=== PATIENT | male | born 1945 | race Caucasian/White ===

== ENCOUNTER 2019-05-08 21:21 | Inpatient (IN) | payer MEDICARE, OTHER ==
[~2019-05-08] VITALS: Ht 170.2 cm; Wt 70.5 kg
[~2019-05-08 21:21] MED LIST: NO HOME MEDS
[2019-05-08 22:00] LABS: BASOPHILS % (AUTO) 0.4 % (0-1); EOSINOPHILS # (AUTO) 0.1 X10'3 (0-0.9); EOSINOPHILS % (AUTO) 0.6 % (0-6); HEMATOCRIT 37.7 % (42.0-52.0); LYMPHOCYTES # (AUTO) 0.8 X10'3 (1.1-4.8); LYMPHOCYTES % (AUTO) 7.9 % (21-51); MEAN CORPUSCULAR HEMOGLOBIN 31.7 PG (27.0-31.0); MEAN CORPUSCULAR HGB CONC 34.5 g/dL (33.0-36.5); MEAN CORPUSCULAR VOLUME 91.8 FL (78-98); MEAN PLATELET VOLUME 7.9 FL (7.4-10.4); MONOCYTES % (AUTO) 9.6 % (2-12); NEUTROPHILS # (AUTO) 8.5 X10'3 (1.8-7.7); NEUTROPHILS % (AUTO) 81.5 % (42-75); PLATELET COUNT 235 X10'3 (140-440); RED BLOOD COUNT 4.11 X10'6 (4.70-6.10); RED CELL DISTRIBUTION WIDTH 12.9 % (11.5-14.5); WHITE BLOOD COUNT 10.5 X10'3 (4.5-11.0)
[2019-05-08 22:10] LABS: PARTIAL THROMBOPLASTIN TIME 32 SECONDS (22-32)
[2019-05-08 22:13] LABS: ALANINE AMINOTRANSFERASE 20 U/L (12-78); ALBUMIN 2.8 G/DL (3.4-5.0); ALBUMIN/GLOBULIN RATIO 0.7 (1.1-1.5); ANION GAP 7 (8-16); ASPARTATE AMINO TRANSFERASE 17 U/L (10-37); BILIRUBIN,TOTAL 0.4 MG/DL (0.1-1.0); BLOOD UREA NITROGEN 11 MG/DL (7-18); BUN/CREATININE RATIO 12.4 (5.4-32.0); CHLORIDE 106 MMOL/L (99-107); CREATININE 0.89 MG/DL (0.60-1.10); GLUCOSE 103 MG/DL (70-104); POTASSIUM 3.9 MMOL/L (3.5-5.1); SODIUM 139 MMOL/L (135-145); TOTAL CARBON DIOXIDE 25.9 MMOL/L (24-32); TOTAL PROTEIN 6.7 G/DL (6.4-8.2); eGFR 83 ML/MIN
[2019-05-08 22:33] LABS: ALKALINE PHOSPHATASE 66 IU/L (46-116)
[2019-05-08] MEDS ORDERED: azithromycin/NS 500mg/250ml 250 ML IV ONE (22:45)
[2019-05-08] MEDS ORDERED: diltiazem 5mg/ml 5ml inj. IV ONE (22:50)
[2019-05-08] MEDS ORDERED: diltiazem 30mg tablet PO ONE (22:50)
[2019-05-08] MEDS ORDERED: cefepime 1GM/NS ADD-VANTAGE 100 ML IV ONE (22:55)
[2019-05-08 22:57] LABS: D-DIMER 0.37 MG/L FEU (0-0.50)
[2019-05-08] MEDS ORDERED: magnesium 4gm in 100ml NS 100 ML IV PRN (23:05)
[2019-05-08] MEDS ORDERED: metoprolol tartrate 1mg/ml inj IV PRN (23:05)
[2019-05-08] MEDS ORDERED: acetaminophen 325mg tablet PO PRN (23:05)
[2019-05-08] MEDS ORDERED: mag hydrox/Alum hydrox/simeth 30ml oral suspension PO PRN (23:05)
[2019-05-08] MEDS ORDERED: potassium Cl 20 mEq SR tablet PO PRN ×2 (23:05)
[2019-05-08] MEDS ORDERED: ondansetron/PF 4mg/2ml inj IV PRN (23:05)
[2019-05-08] MEDS ORDERED: magnesium hydroxide 30ml (MOM) UD suspension PO PRN (23:05)
[2019-05-08] MEDS ORDERED: magnesium Cl slow-release 64mg tablet PO PRN (23:05)
[2019-05-08] MEDS ORDERED: magnesium 2GM in 50ml NS 50 ML IV PRN (23:05)
[2019-05-08] MEDS ORDERED: potassium CL 10mEq/100ml bag 100 ML IV PRN ×2 (23:05)
--- NOTE | 2019-05-08 23:08 | NUR ---
PT IS INCONTINENT OF URINE, PAJAMA BOTTOMS WET, CLEANED PT, AT BEDSIDE,
--- NOTE | 2019-05-09 00:02 | NUR ---
at bedside, she said he needs pureed food and he constantly drools and needs a washcloth, pt communicates by using one finger for yes and 2 fingers for no, he also can say yes or no, difficulty speaking
--- NOTE | 2019-05-09 01:00 | NUR ---
BP 86/46, at bedside and said his mentation has not changed, paged hospitalist, Dr Andrews aware also, gave verbal order for 1liter NS bolus, HR 90s to 110, skin p/w/d,
[2019-05-09] MEDS ORDERED: normal saline 1000ml 1,000 ML IV ONE (01:15)
--- NOTE | 2019-05-09 01:25 | NUR ---
report given to Tahmina RN, will hold transferring to floor due to low BP, pt is receiving 1 liter NS fluid bolus now, at bedside and is aware of plan
[2019-05-09] MEDS ORDERED: dexamethasone sod phosphate 10mg/ml inj IV STA (01:45)
--- NOTE | 2019-05-09 01:47 | NUR ---
800 ml of 1000 ns bolus in pt, pt bp 77/56. Susi cupola tender notified and at bedside now. Awaiting orders and will continue to monitor
--- NOTE | 2019-05-09 02:56 | NUR ---
Patient in room ED 2. I have received report from Tahmina JUÁREZ and had the opportunity to ask questions and assume patient care.
[2019-05-09 03:45] VITALS: BP 88/56
[2019-05-09 05:19] LABS: BASOPHILS % (AUTO) 0.5 % (0-1); EOSINOPHILS # (AUTO) 0.1 X10'3 (0-0.9); EOSINOPHILS % (AUTO) 0.9 % (0-6); HEMATOCRIT 36.7 % (42.0-52.0); HEMOGLOBIN 12.5 g/dl (14.0-17.9); LYMPHOCYTES # (AUTO) 0.6 X10'3 (1.1-4.8); LYMPHOCYTES % (AUTO) 7.7 % (21-51); MEAN CORPUSCULAR HEMOGLOBIN 31.5 PG (27.0-31.0); MEAN CORPUSCULAR HGB CONC 34.1 g/dL (33.0-36.5); MEAN CORPUSCULAR VOLUME 92.4 FL (78-98); MEAN PLATELET VOLUME 8.3 FL (7.4-10.4); MONOCYTES # (AUTO) 0.3 X10'3 (0-0.9); MONOCYTES % (AUTO) 4.3 % (2-12); NEUTROPHILS # (AUTO) 6.5 X10'3 (1.8-7.7); NEUTROPHILS % (AUTO) 86.6 % (42-75); PLATELET COUNT 250 X10'3 (140-440); RED BLOOD COUNT 3.97 X10'6 (4.70-6.10); WHITE BLOOD COUNT 7.5 X10'3 (4.5-11.0)
[2019-05-09 05:29] LABS: ALBUMIN 2.8 G/DL (3.4-5.0); ANION GAP 8 (8-16); BLOOD UREA NITROGEN 7 MG/DL (7-18); BUN/CREATININE RATIO 8.1 (5.4-32.0); CALCIUM 7.9 MG/DL (8.5-10.1); CHLORIDE 110 MMOL/L (99-107); CREATININE 0.86 MG/DL (0.60-1.10); GLUCOSE 114 MG/DL (70-104); POTASSIUM 3.8 MMOL/L (3.5-5.1); SODIUM 144 MMOL/L (135-145); TOTAL CARBON DIOXIDE 26.3 MMOL/L (24-32); eGFR 87 ML/MIN
[2019-05-09 06:00] VITALS: BP 107/63
--- NOTE | 2019-05-09 06:00 | NUR ---
Patient in room PCU 3026. I have received report from [facility] and had the opportunity to ask questions and assume patient care.
--- NOTE | 2019-05-09 07:07 | NUR ---
Problems reprioritized. Patient report given, questions answered & plan of care reviewed with Florencia JUÁREZ.
[2019-05-09] MEDS ORDERED: cefepime 2gm inj IV SCH (08:00)
[2019-05-09] MEDS: K and/or MAG REPLACEMENT MC SCH (08:00)
[2019-05-09] MEDS: cefepime 1GM in D5W 50mL 50 ML IV SCH ×2 (08:55→21:17)
[2019-05-09] MEDS: metoprolol tartrate 25mg tablet PO SCH ×2 (08:56→21:18)
[2019-05-09] MEDS: enoxaparin 40mg/0.4ml syringe SQ SCH (08:58)
[2019-05-09 10:05] LABS: CLARITY,URINE CLEAR (Clear); COLOR,URINE YELLOW (Yellow); GLUCOSE, URINE 250 mg/dl (Neg); KETONES,URINE NEGATIVE (Neg); LEUKOCYTE ESTERASE ,URINE NEGATIVE (Neg); NITRITES, URINE NEGATIVE (Neg); OCCULT BLOOD,URINE TRACE-LYSED (Neg); PH,URINE 6.5 (4.8-8.0); PROTEIN,URINE NEGATIVE (Neg); UROBILINOGEN,URINE 0.2 E.U/dL (0.2-1.0)
[2019-05-09 10:06] LABS: UA COLLECTION TYPE NON-SPECIFIED
[2019-05-09] MEDS: metroNIDAZOLE-Flagyl 500mg/NS 100 ML IV SCH ×3 (10:06→23:48)
[2019-05-09 10:17] LABS: SQUAMOUS EPITHELIAL CELL,UR FEW /LPF (FEW)
[2019-05-09 10:18] LABS: WBC,URINE 0-4 /HPF (0-4)
[2019-05-09 10:19] LABS: BACTERIA,URINE FEW /HPF (Neg); RBC,URINE 0-2 /HPF (0-2)
[2019-05-09 11:00] VITALS: BP 97/70
[2019-05-09 16:52] VITALS: BP 131/55
[2019-05-09 18:00] VITALS: BP 110/70
[2019-05-09] MEDS ORDERED: bisacodyl 10mg suppository rectal RC PRN (18:20)
--- NOTE | 2019-05-09 18:39 | NUR ---
Problems reprioritized. Patient report given, questions answered & plan of care reviewed with Luz Marina
--- NOTE | 2019-05-09 18:51 | NUR ---
Patient in room PCU 3026. I have received report from Maribel JUÁREZ and had the opportunity to ask questions and assume patient care.
[2019-05-09] MEDS: lactobacillus rhamnosus 10,000 MMU CELLS/CAPSULE PO SCH (21:17)
[2019-05-09 22:00] VITALS: BP 101/63
[2019-05-10] VITALS (10 sets, daily range): BP systolic 80–132; BP diastolic 40–73
[2019-05-10 05:28] LABS: BASOPHILS % (AUTO) 0.1 % (0-1); EOSINOPHILS % (AUTO) 0 % (0-6); HEMATOCRIT 35.8 % (42.0-52.0); HEMOGLOBIN 12.5 g/dl (14.0-17.9); LYMPHOCYTES % (AUTO) 11.8 % (21-51); MEAN CORPUSCULAR HEMOGLOBIN 31.6 PG (27.0-31.0); MEAN CORPUSCULAR HGB CONC 34.8 g/dL (33.0-36.5); MEAN PLATELET VOLUME 8.3 FL (7.4-10.4); MONOCYTES # (AUTO) 0.6 X10'3 (0-0.9); NEUTROPHILS # (AUTO) 6.5 X10'3 (1.8-7.7); NEUTROPHILS % (AUTO) 80.1 % (42-75); PLATELET COUNT 281 X10'3 (140-440); RED BLOOD COUNT 3.94 X10'6 (4.70-6.10); RED CELL DISTRIBUTION WIDTH 12.8 % (11.5-14.5); WHITE BLOOD COUNT 8.2 X10'3 (4.5-11.0)
--- NOTE | 2019-05-10 06:00 | NUR ---
Patient in room PCU 3026. I have received report from Luz Marina JUÁREZ and had the opportunity to ask questions and assume patient care.
[2019-05-10 06:12] LABS: ALBUMIN 2.9 G/DL (3.4-5.0); ANION GAP 10 (8-16); BLOOD UREA NITROGEN 11 MG/DL (7-18); BUN/CREATININE RATIO 15.1 (5.4-32.0); CALCIUM 8.6 MG/DL (8.5-10.1); CHLORIDE 109 MMOL/L (99-107); CREATININE 0.73 MG/DL (0.60-1.10); GLUCOSE 117 MG/DL (70-104); MAGNESIUM 2.1 MG/DL (1.5-2.4); SODIUM 144 MMOL/L (135-145); TOTAL CARBON DIOXIDE 24.8 MMOL/L (24-32); eGFR > 90 ML/MIN
--- NOTE | 2019-05-10 06:43 | NUR ---
Problems reprioritized. Patient report given, questions answered & plan of care reviewed with Aileen JUÁREZ.
[2019-05-10] MEDS: K and/or MAG REPLACEMENT MC SCH (08:00)
[2019-05-10] MEDS: cefepime 1GM in D5W 50mL 50 ML IV SCH (08:03)
[2019-05-10] MEDS: lactobacillus rhamnosus 10,000 MMU CELLS/CAPSULE PO SCH ×2 (08:12→20:54)
[2019-05-10] MEDS: metoprolol tartrate 25mg tablet PO SCH ×2 (08:14→20:55)
[2019-05-10] MEDS: enoxaparin 40mg/0.4ml syringe SQ SCH (08:15)
[2019-05-10] MEDS ORDERED: levoFLOXACIN-Levaquin 500mg/D5 100 ML IV SCH (09:00)
--- NOTE | 2019-05-10 19:22 | NUR ---
Problems reprioritized. Patient report given, questions answered & plan of care reviewed with MARQUITA Williamson. Addendum: 05/10/19 at 1924 by Karoline Fitzgerald RN Report given to MARQUITA Raza not MARQUITA Williamson
--- NOTE | 2019-05-10 19:45 | NUR ---
Patient in room PCU 3026. I have received report from Rosa Elena JUÁREZ and had the opportunity to ask questions and assume patient care.
[2019-05-10] MEDS: levoFLOXACIN-Levaquin 500mg/D5 100 ML IV SCH (20:56)
[2019-05-11] MEDS: acetaminophen 325mg tablet PO PRN (00:42)
[2019-05-11 02:00] VITALS: BP 112/61
[2019-05-11 05:24] LABS: BASOPHILS % (AUTO) 0.5 % (0-1); EOSINOPHILS # (AUTO) 0.1 X10'3 (0-0.9); EOSINOPHILS % (AUTO) 1.1 % (0-6); HEMOGLOBIN 12.9 g/dl (14.0-17.9); LYMPHOCYTES # (AUTO) 1.8 X10'3 (1.1-4.8); LYMPHOCYTES % (AUTO) 19.1 % (21-51); MEAN CORPUSCULAR HEMOGLOBIN 31.7 PG (27.0-31.0); MEAN CORPUSCULAR VOLUME 90.7 FL (78-98); MEAN PLATELET VOLUME 8.2 FL (7.4-10.4); MONOCYTES % (AUTO) 10.6 % (2-12); NEUTROPHILS # (AUTO) 6.3 X10'3 (1.8-7.7); NEUTROPHILS % (AUTO) 68.7 % (42-75); PLATELET COUNT 297 X10'3 (140-440); RED BLOOD COUNT 4.08 X10'6 (4.70-6.10); RED CELL DISTRIBUTION WIDTH 12.8 % (11.5-14.5); WHITE BLOOD COUNT 9.2 X10'3 (4.5-11.0)
[2019-05-11 05:31] LABS: ALBUMIN 2.8 G/DL (3.4-5.0); ANION GAP 8 (8-16); BLOOD UREA NITROGEN 11 MG/DL (7-18); BUN/CREATININE RATIO 15.5 (5.4-32.0); CALCIUM 8.4 MG/DL (8.5-10.1); CHLORIDE 109 MMOL/L (99-107); CREATININE 0.71 MG/DL (0.60-1.10); GLUCOSE 87 MG/DL (70-104); MAGNESIUM 1.9 MG/DL (1.5-2.4); POTASSIUM 3.6 MMOL/L (3.5-5.1); SODIUM 144 MMOL/L (135-145); TOTAL CARBON DIOXIDE 27.1 MMOL/L (24-32); eGFR > 90 ML/MIN
[2019-05-11 06:30] VITALS: BP 115/68
--- NOTE | 2019-05-11 07:06 | NUR ---
Patient in room PCU 3027A. I have received report from Catherine JUÁREZ and had the opportunity to ask questions and assume patient care.
--- NOTE | 2019-05-11 07:19 | NUR ---
Problems reprioritized. Patient report given, questions answered & plan of care reviewed with Indira JUÁREZ.
[2019-05-11] MEDS: metoprolol tartrate 25mg tablet PO SCH ×2 (08:00→16:33)
[2019-05-11] MEDS: K and/or MAG REPLACEMENT MC SCH (08:00)
[2019-05-11] MEDS: enoxaparin 40mg/0.4ml syringe SQ SCH (08:42)
[2019-05-11] MEDS: lactobacillus rhamnosus 10,000 MMU CELLS/CAPSULE PO SCH ×2 (08:42→21:06)
--- NOTE | 2019-05-11 10:40 | NUR ---
0142 reassessment for Tylenol not done. "not done" clicked to clear from EMAR
[2019-05-11 11:00] VITALS: BP 93/56
--- NOTE | 2019-05-11 12:36 | NUR ---
Patient had 4 beat run of V-tach. Reported to Dr Prado PAGER ID: [phone] MESSAGE: Indira story [phone]. RE Juan Miller [id number]. 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 Heart rate currently 107.
--- NOTE | 2019-05-11 13:05 | NUR ---
Problems reprioritized. Patient report given, questions answered & plan of care reviewed with Senait JUÁREZ.
--- NOTE | 2019-05-11 13:26 | NUR ---
RECEIVED REPORT FROM KIRSTEN Giraldo RN. [facility]
[2019-05-11 15:00] VITALS: BP 140/81
[2019-05-11 18:00] VITALS: BP 118/51
--- NOTE | 2019-05-11 18:10 | NUR ---
Patient in room PCU 3026. I have received report from Senait JUÁREZ and had the opportunity to ask questions and assume patient care.
--- NOTE | 2019-05-11 18:23 | NUR ---
PT IS NON COMPLIANT WITH HOLDING SALT.
[2019-05-11] MEDS: levoFLOXACIN-Levaquin 500mg/D5 100 ML IV SCH (21:07)
[2019-05-11 23:00] VITALS: BP 91/44
[2019-05-12 02:30] VITALS: BP 105/62
[2019-05-12 05:37] LABS: BASOPHILS % (AUTO) 0.6 % (0-1); EOSINOPHILS # (AUTO) 0.2 X10'3 (0-0.9); EOSINOPHILS % (AUTO) 2.9 % (0-6); HEMATOCRIT 41.4 % (42.0-52.0); HEMOGLOBIN 14.4 g/dl (14.0-17.9); LYMPHOCYTES # (AUTO) 1.7 X10'3 (1.1-4.8); LYMPHOCYTES % (AUTO) 24.1 % (21-51); MEAN CORPUSCULAR HEMOGLOBIN 31.8 PG (27.0-31.0); MEAN CORPUSCULAR HGB CONC 34.7 g/dL (33.0-36.5); MEAN CORPUSCULAR VOLUME 91.7 FL (78-98); MEAN PLATELET VOLUME 7.9 FL (7.4-10.4); MONOCYTES # (AUTO) 0.9 X10'3 (0-0.9); MONOCYTES % (AUTO) 13.2 % (2-12); NEUTROPHILS # (AUTO) 4.3 X10'3 (1.8-7.7); NEUTROPHILS % (AUTO) 59.2 % (42-75); PLATELET COUNT 344 X10'3 (140-440); RED BLOOD COUNT 4.52 X10'6 (4.70-6.10); RED CELL DISTRIBUTION WIDTH 13.1 % (11.5-14.5); WHITE BLOOD COUNT 7.2 X10'3 (4.5-11.0)
[2019-05-12 05:40] LABS: ANION GAP 8 (8-16); BLOOD UREA NITROGEN 9 MG/DL (7-18); BUN/CREATININE RATIO 10.5 (5.4-32.0); CALCIUM 8.9 MG/DL (8.5-10.1); CHLORIDE 105 MMOL/L (99-107); CREATININE 0.86 MG/DL (0.60-1.10); GLUCOSE 95 MG/DL (70-104); MAGNESIUM 1.9 MG/DL (1.5-2.4); POTASSIUM 3.7 MMOL/L (3.5-5.1); SODIUM 142 MMOL/L (135-145); TOTAL CARBON DIOXIDE 28.6 MMOL/L (24-32); eGFR 87 ML/MIN
[2019-05-12 06:30] VITALS: BP 109/63
--- NOTE | 2019-05-12 06:30 | NUR ---
Problems reprioritized. Patient report given, questions answered & plan of care reviewed with Indira lopez and Halie RN.
--- NOTE | 2019-05-12 06:35 | NUR ---
Patient in room PCU 3020M. I have received report from Jolene JUÁREZ and had the opportunity to ask questions and assume patient care.
[2019-05-12] MEDS: K and/or MAG REPLACEMENT MC SCH (07:03)
[2019-05-12] MEDS: metoprolol tartrate 25mg tablet PO SCH ×3 (07:21→20:33)
--- NOTE | 2019-05-12 07:39 | NUR ---
notification to Dr Jones that patient is back in A-fib PAGER ID: [phone] MESSAGE: Indira story [phone]. RE Juan Miller 3026A. PANCHOI that patient is in A-fib (goes back and forth between A-fib and SR). HR currently 120. Thank you
--- NOTE | 2019-05-12 08:17 | NUR ---
Patient converted back to sinus, paged Dr Jones to be aware PAGER ID: [phone] MESSAGE: Indira story [phone]. RE Juan Miller 3026A. Pt converted back to Sinus, HR 117.
[2019-05-12] MEDS: lactobacillus rhamnosus 10,000 MMU CELLS/CAPSULE PO SCH ×2 (08:20→20:33)
[2019-05-12] MEDS: enoxaparin 40mg/0.4ml syringe SQ SCH (08:21)
[2019-05-12 11:00] VITALS: BP 103/41
[2019-05-12] MEDS ORDERED: LACT1CAP26 PO (13:41)
[2019-05-12] MEDS ORDERED: LEVO500T89 PO (13:41)
[2019-05-12] MEDS ORDERED: METO25TA6 PO (13:41)
[2019-05-12] MEDS ORDERED: METO-395 PO (13:43)
--- NOTE | 2019-05-12 14:04 | NUR ---
Per MD Dr. Jones, patient stable for discharge. Per discharge order, pt to go back to [facility]. Contacted case management as did not want patient to go back to [facility]. Spoke with Dilia PALU, will speak with Dr. Jones about discharge plan and call back. Awaiting call from case management at this time.
[2019-05-12 15:00] VITALS: BP 99/69
--- NOTE | 2019-05-12 15:59 | NUR ---
Per case repairer Felicity, patient will not be discharging tonight. Placement after discharge has yet to be determined. is not returning phone calls regarding discharge, has stated prior that she does not want patient to go back to [place]. Case management discussed with Dr Jones the transfer issue and that patient will be unable to discharge today.
[2019-05-12 18:00] VITALS: BP 109/61
--- NOTE | 2019-05-12 18:27 | NUR ---
Problems reprioritized. Patient report given, questions answered & plan of care reviewed with Tho JUÁREZ .
--- NOTE | 2019-05-12 18:31 | NUR ---
Patient in room PCU 3029U. I have received report from Halie RN and Indira RN and had the opportunity to ask questions and assume patient care. Patient asleep for bedside report. Will continue to monitor closely.
[2019-05-12] MEDS: levoFLOXACIN-Levaquin 500mg/D5 100 ML IV SCH (20:15)
[2019-05-12 22:00] VITALS: BP 109/71
[2019-05-13] MEDS: acetaminophen 325mg tablet PO PRN (01:09)
[2019-05-13 03:00] VITALS: BP 117/79
[2019-05-13 05:00] LABS: BASOPHILS # (AUTO) 0.1 X10'3 (0-0.2); BASOPHILS % (AUTO) 0.7 % (0-1); EOSINOPHILS # (AUTO) 0.2 X10'3 (0-0.9); EOSINOPHILS % (AUTO) 2.8 % (0-6); HEMATOCRIT 40.2 % (42.0-52.0); HEMOGLOBIN 14.1 g/dl (14.0-17.9); LYMPHOCYTES # (AUTO) 1.8 X10'3 (1.1-4.8); LYMPHOCYTES % (AUTO) 21.7 % (21-51); MEAN CORPUSCULAR HEMOGLOBIN 32.1 PG (27.0-31.0); MEAN CORPUSCULAR VOLUME 91.6 FL (78-98); MEAN PLATELET VOLUME 7.5 FL (7.4-10.4); MONOCYTES # (AUTO) 0.9 X10'3 (0-0.9); MONOCYTES % (AUTO) 10.5 % (2-12); NEUTROPHILS # (AUTO) 5.3 X10'3 (1.8-7.7); NEUTROPHILS % (AUTO) 64.3 % (42-75); PLATELET COUNT 347 X10'3 (140-440); RED BLOOD COUNT 4.39 X10'6 (4.70-6.10); RED CELL DISTRIBUTION WIDTH 12.6 % (11.5-14.5); WHITE BLOOD COUNT 8.3 X10'3 (4.5-11.0)
[2019-05-13 05:03] LABS: ALBUMIN 2.8 G/DL (3.4-5.0); ANION GAP 7 (8-16); BLOOD UREA NITROGEN 11 MG/DL (7-18); BUN/CREATININE RATIO 12.2 (5.4-32.0); CALCIUM 9.4 MG/DL (8.5-10.1); CHLORIDE 103 MMOL/L (99-107); GLUCOSE 91 MG/DL (70-104); MAGNESIUM 2.2 MG/DL (1.5-2.4); SODIUM 139 MMOL/L (135-145); TOTAL CARBON DIOXIDE 28.6 MMOL/L (24-32); eGFR 82 ML/MIN
[2019-05-13 06:00] VITALS: BP 101/52
--- NOTE | 2019-05-13 06:07 | NUR ---
Problems reprioritized. Patient report given, questions answered & plan of care reviewed with Indira RN and MARQUITA Ambrose.
--- NOTE | 2019-05-13 06:45 | NUR ---
Patient in room PCU 3026F. I have received report from Tho JUÁREZ and had the opportunity to ask questions and assume patient care.
--- NOTE | 2019-05-13 07:30 | NUR ---
Patient refused breakfast. Aid and RN attempted multiple times to offer food but patient did not want to eat.
[2019-05-13] MEDS: metoprolol tartrate 25mg tablet PO SCH ×3 (08:00→20:54)
[2019-05-13] MEDS: enoxaparin 40mg/0.4ml syringe SQ SCH ×2 (08:00→08:32)
[2019-05-13] MEDS: lactobacillus rhamnosus 10,000 MMU CELLS/CAPSULE PO SCH ×2 (08:00→20:52)
[2019-05-13] MEDS: K and/or MAG REPLACEMENT MC SCH (08:00)
[2019-05-13 11:00] VITALS: BP 123/75
--- NOTE | 2019-05-13 14:45 | NUR ---
Initial: Pt admit with suspected aspiration pneumonia/community-acquired pneumonia. Patient is nonverbal per MD notes. Pt s/p BSS with ST recs pureed food with nectar thick liquids, must take small bites and sips, and needs a feeder. Pt documented with 25-50% PO intake with max assist likely not meeting nutrient needs. D/w dietary to send Ensure pudding QD at breakfast and Magic Cup BIDLD. Pt with low Xander of 12, assessed by wound care. Per WOC notes skin intact. LBM 05/12. Will continue to follow. Recommendations: 1) Continue heart healthy pureed food/nectar thick food per ST recs 2) Consider diet liberalization to regular given low PO intake 3) Ensure Pudding QD with breakfast; Magic Cup BIDLD 4) Encourage PO intake 5) Wt per rx Addendum: 05/13/19 at [address] Amended: Links added.
[2019-05-13 15:00] VITALS: BP 135/76
--- NOTE | 2019-05-13 17:13 | NUR ---
Problems reprioritized. Patient report given, questions answered & plan of care reviewed with Tho JUÁREZ.
--- NOTE | 2019-05-13 17:29 | NUR ---
Patient in room U 3028o. I have received report from MARQUITA Jacobson and had the opportunity to ask questions and assume patient care.
--- NOTE | 2019-05-13 17:57 | NUR ---
Problems reprioritized. Patient report given, questions answered & plan of care reviewed with Tho JUÁREZ.
[2019-05-13 19:00] VITALS: BP 117/63
[2019-05-13] MEDS: levoFLOXACIN-Levaquin 500mg/D5 100 ML IV SCH (20:52)
--- NOTE | 2019-05-13 21:06 | NUR ---
Unable to administer 2000 dose metoprolol. Patient spit pill out with applesauce and stated, " you are trying to dope me up." Educated patient on importance of adhering to medication administration schedule and health risks and benefits of refusing prescribed medication. Will continue to monitor closely.
[2019-05-13 23:00] VITALS: BP 111/68
[2019-05-14 03:00] VITALS: BP 101/59
[2019-05-14 06:00] VITALS: BP 106/65
[2019-05-14] MEDS: K and/or MAG REPLACEMENT MC SCH (08:00)
[2019-05-14] MEDS: metoprolol tartrate 25mg tablet PO SCH ×2 (08:28→20:00)
[2019-05-14] MEDS: lactobacillus rhamnosus 10,000 MMU CELLS/CAPSULE PO SCH ×2 (08:28→20:00)
[2019-05-14] MEDS: enoxaparin 40mg/0.4ml syringe SQ SCH (08:28)
[2019-05-14 11:00] VITALS: BP 113/77
[2019-05-14] MEDS: levoFLOXACIN 500mg tablet PO SCH (12:24)
[2019-05-14 15:00] VITALS: BP 95/62
[2019-05-14 18:00] VITALS: BP 99/63
--- NOTE | 2019-05-14 18:30 | NUR ---
Patient in room PCU 3026. I have received report from MARQUITA Seals and had the opportunity to ask questions and assume patient care.
--- NOTE | 2019-05-14 19:08 | NUR ---
Problems reprioritized. Patient report given, questions answered & plan of care reviewed with Brenda JUÁREZ.
[2019-05-14 22:00] VITALS: BP 11/62
[2019-05-15] MEDS: lactobacillus rhamnosus 10,000 MMU CELLS/CAPSULE PO SCH ×2 (00:46→07:53)
[2019-05-15] MEDS: acetaminophen 325mg tablet PO PRN (00:46)
--- NOTE | 2019-05-15 00:50 | NUR ---
Patient poimnted to his head and said it hurt, i asked him if he wanted a tylenol and he said yes. When I went to give him the tylenol he said no. This is why I clicked "undo" on med
[2019-05-15 02:00] VITALS: BP 122/71
--- NOTE | 2019-05-15 04:22 | NUR ---
Informed Dr. Greene about patient having some urinary retention. We bladder scanned him and he has 500cc in his bladder. Dr. Greene would like to wait until shift change to see if the patient will urinate. This patient is usually incontinent. Will continue to monitor this patient.
[2019-05-15 06:00] VITALS: BP 91/53
--- NOTE | 2019-05-15 06:04 | NUR ---
Patient in room PCU 3026. I have received report from MARQUITA Mendes and had the opportunity to ask questions and assume patient care.
--- NOTE | 2019-05-15 06:20 | NUR ---
Patient in room PCU 3026. I have received report from Brenda JUÁREZ and had the opportunity to ask questions and assume patient care.
[2019-05-15] MEDS: enoxaparin 40mg/0.4ml syringe SQ SCH (07:54)
[2019-05-15] MEDS: metoprolol tartrate 25mg tablet PO SCH (08:00)
[2019-05-15] MEDS: K and/or MAG REPLACEMENT MC SCH (08:00)
--- NOTE | 2019-05-15 10:00 | NUR ---
Spoke with Dr. Jones concerning holding Pt's morning dose of metoprolol due to decreased BP. Dr. Jones okayed non-admit. No new orders for daily labs.
[2019-05-15 11:00] VITALS: BP 114/70
[2019-05-15] MEDS: levoFLOXACIN 500mg tablet PO SCH (11:00)
[2019-05-15 15:00] VITALS: BP 128/73
--- NOTE | 2019-05-15 16:59 | NUR ---
PAGER ID: [phone] MESSAGE: RE: Pako Miller. Room: 3026A. Pt's called and said she is coming to take Pt home. Old Discharge order is still in place, can I [id number] Jones paged concerning Pt's coming to pick Pt up.
[2019-05-15] MEDS ORDERED: LEVO500T89 PO (17:14)
--- NOTE | 2019-05-15 17:45 | NUR ---
Pt DC'd home with . called hospital and said she was coming to cherry picker operator . Dr. Jones notified and okayed DC. IV's removed, canula's intact. Tele-box removed and returned to [employer]. Pt stable and vitals WNL upon DC. New meds called into [facility] in [place]. DC paperwork gone over with Pt and . Allowed Pt and to ask questions concerning DC and then answer them. Went over new medications with Pt and . Pt's belongings gathered and sent with Pt. Pt wheeled down to lobby in wheel chair by aid. Pt left with in private vehicle for home.
== END 2019-05-15 17:20 | disposition home health service (06) | DRG 871 ==
LOC: ER 21:21 → ED HOLD 23:45 → PCU 3S 05-09 03:08
PROVIDERS: ADMIT Hospitalist; ATTEND Family Medicine
DX: A41.9 Sepsis, unspecified organism (principal); J69.0 Pneumonitis due to inhalation of food and vomit; I48.91 Unspecified atrial fibrillation; F03.90 Unspecified dementia, unspecified severity, without behavioral disturbance, psychotic disturbance, mood disturbance, and anxiety; K59.00 Constipation, unspecified; R13.10 Dysphagia, unspecified; Z66 Do not resuscitate
CPT/HCPCS: 36415; 71045; 80048; 80053; 81001; 82948; 83605; 83735; 83880; 84145; 84484; 85025; 85379; 85610; 85730; 87040; 87081; 92508; 92616; 93005; 93306; 97112; 97116; 97161; 97530; 99285; G0378; J0456; J0692; J1100; J1650; J1956; J3490

== ENCOUNTER 2019-06-05 11:07 | Emergency (ER) | payer MEDICARE, OTHER ==
[~2019-06-05] VITALS: Ht 172.7 cm; Wt 72.7 kg
[~2019-06-05 11:07] MED LIST changes: +LACT1CAP26 PO; +LEVO500T89 PO; +METO-395 PO; -NO HOME MEDS
[2019-06-05 11:10] VITALS: BP 133/74
--- NOTE | 2019-06-05 12:39 | NUR ---
PTS AT BS. 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
[2019-06-05] MEDS ORDERED: LIDOcaine 1% w/epiNEPHrine 1:200,000 30ml vial IM ONE (12:50)
== END 2019-06-05 14:31 | disposition home or self-care (01) ==
LOC: ER 11:07
DX: S02.2XXA Fracture of nasal bones, initial encounter for closed fracture (principal); S01.112A Laceration without foreign body of left eyelid and periocular area, initial encounter; F03.90 Unspecified dementia, unspecified severity, without behavioral disturbance, psychotic disturbance, mood disturbance, and anxiety; Z79.899 Other long term (current) drug therapy; W18.39XA Other fall on same level, initial encounter; Y93.89 Activity, other specified; Y92.009 Unspecified place in unspecified non-institutional (private) residence as the place of occurrence of the external cause; Y99.8 Other external cause status
CPT/HCPCS: 12011; 70450; 70486; 71045; 72125; 93005; 99284